=== PATIENT | male | born 1980 | race Caucasian/White ===

== ENCOUNTER 2016-11-28 15:01 | Emergency (ER) | payer BC ==
[~2016-11-28] VITALS: Ht 180.3 cm; Wt 78.9 kg
[2016-11-28 15:06] VITALS: TEMP 36.6; Ht 180.3 cm; Wt 78.9 kg
[2016-11-28] MEDS ORDERED: CLR10 PO (15:25)
[2016-11-28] MEDS ORDERED: MULT-106 PO (15:25)
--- NOTE | 2016-11-28 15:39 | EMERGENCY ROOM VISIT NOTE ---
History First contact with patient: 15:12 Chief Complaint: CARDIAC ASSESSMENT Stated Complaint: NUMBNESS IN HANDS,RAPID HEARTBEAT,CHEST PRESSURE History of Present Illness The patient is a 36 year old male who presents to the Emergency Room with complaints of intermittent chest discomfort over the last several months. He reports that it occurs a few times a week. It is not related to exercise. He denies any shortness of breath. He became concerned last night because he developed the pain and then his hands felt numb. The numbness then spread up his arms into his shoulders and his jaw. This lasted for approximately 1 hour. He took an aspirin last night with no relief of his symptoms. He denies any known history of coronary artery disease. He denies any recent illness like fever, cough, sore throat or headaches. He does admit to occasional heart palpitations. The patient does not know of any insect bites. 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 Review of Systems 10 system review performed and negative unless noted in HPI or below Past Medical/Surgical History Otherwise healthy Family History Mother-stroke in her 50s Social History Smoking Status: Former Smoker Alcohol Use: occasionally Drug Use: none Marital Status: Housing Status: lives with significant other Occupation Status: employed Current/Historical Medications Scheduled Loratadine (Claritin), 10 MG PO DAILY Multiple Vitamins W/ Minerals (One Daily Mens), 1 TAB PO DAILY Allergies Coded Allergies: No Known Allergies (Unverified , 08/29/15) Physical Exam Vital Signs Date Time Temp Pulse Resp B/P (MAP) Pulse Ox O2 Delivery O2 Flow Rate FiO2 11/28/16 18:01 62 18 111/62 96 Room Air 11/28/16 17:00 65 18 132/73 97 Room Air 11/28/16 15:24 87 11/28/16 15:06 36.6 74 18 120/73 98 Room Air Physical Exam VITALS: Vitals are noted on the nurse's note and reviewed by myself. Vital signs stable. GENERAL: 36-year-old male, in no acute distress, nondiaphoretic, well-developed well-nourished. SKIN: The skin was without rashes, erythema, edema, or bruising. HEAD: Normocephalic atraumatic. MOUTH: Mucous membranes fairly moist. NECK: Supple without nuchal rigidity. No lymphadenopathy. Cervical spine is nontender. No JVD. HEART: Regular rate and rhythm without murmurs gallops or rubs. LUNGS: Clear to auscultation bilaterally without wheezes, rales or rhonchi. No accessory muscle use. ABDOMEN: Positive bowel sounds x 4.Soft, nontender, without organomegaly. No guarding or rebound tenderness. MUSCULOSKELETAL: No muscle atrophy, erythema, or edema noted. No tenderness to palpation. Normal gait. Strength 5/5 throughout. NEURO: Patient was alert and oriented to person place and time. Normal sensation to touch. No focal neurological deficits. Medical Decision & Procedures ER Provider Diagnostic Interpretation: Patient: CURTIS KNIGHT Address1: [address] Rec: [id number] Address2: Acct ID: [id number] [facility] Zip: [place] [address] Date: 1980 Sex: M Room/Bed: Ref Phy: Altaf Burnette D.O. SC: BETO Att Phy: Report #: [id number] Lorena Phy: Altaf Burnette D.O. Test: CXR Admit Phy: Twister Hand: JOSE Interpreting Phy: Jemal Garland M.D. Diagnosis: NUMBNESS IN HANDS,RAPID HEARTBEAT,CHEST PRESSURE Ordering Phy: Chayo Webb PA-C Service Date: 11/28/16 Admit Date: 11/28/16 MNE: [id number] CONF: DICTATED BY: Jemal Garland M.D.]] CC: Vasile Calderon D.O. Newhouser, Shane D., D.O. Urban, Angela P., PA-C Endcc: [~ rep ct add3]] CHEST 2 VIEWS ROUTINE CLINICAL HISTORY: chest pain dyspnea COMPARISON STUDY: None FINDINGS: The bones soft tissues and hemidiaphragms are normal. The cardiomediastinal silhouette is normal. The lungs are clear. The pulmonary vasculature is normal. IMPRESSION: Negative chest. The above report was generated using voice recognition software. It may contain grammatical, syntax or spelling errors. Electronically signed by: Jemal Garland M.D. 11/28/2016 5:07 PM Dictated Date/Time: 11/28/2016 5:07 PM The status of this report is Signed. Draft = Not yet reviewed or approved by Radiologist. Signed = Reviewed and approved by Radiologist. Laboratory Results 11/28/16 15:43 Red Blood Count 4.85, Mean Corpuscular Volume 86.4, Mean Corpuscular Hemoglobin 29.5, Mean Corpuscular Hemoglobin Concent 34.1, Mean Platelet Volume 10.3, Neutrophils (%) (Auto) 61.7, Lymphocytes (%) (Auto) 29.3, Monocytes (%) (Auto) 7.9, Eosinophils (%) (Auto) 0.7, Basophils (%) (Auto) 0.3, Neutrophils # (Auto) 4.53, Lymphocytes # (Auto) 2.15, Monocytes # (Auto) 0.58, Eosinophils # (Auto) 0.05, Basophils # (Auto) 0.02 11/28/16 15:43 Test 11/28/16 15:34 11/28/16 15:43 Creatine Kinase MB Ratio (0-3.0) White Blood Count 7.34 K/uL (4.8-10.8) Red Blood Count 4.85 M/uL (4.7-6.1) Hemoglobin 14.3 g/dL (14.0-18.0) Hematocrit 41.9 % (42-52) Mean Corpuscular Volume 86.4 fL (80-100) Mean Corpuscular Hemoglobin 29.5 pg (25-34) Mean Corpuscular Hemoglobin Concent 34.1 g/dl (32-36) Platelet Count 373 K/uL (130-400) Mean Platelet Volume 10.3 fL (7.4-10.4) Neutrophils (%) (Auto) 61.7 % Lymphocytes (%) (Auto) 29.3 % Monocytes (%) (Auto) 7.9 % Eosinophils (%) (Auto) 0.7 % Basophils (%) (Auto) 0.3 % Neutrophils # (Auto) 4.53 K/uL (1.4-6.5) Lymphocytes # (Auto) 2.15 K/uL (1.2-3.4) Monocytes # (Auto) 0.58 K/uL (0.11-0.59) Eosinophils # (Auto) 0.05 K/uL (0-0.5) Basophils # (Auto) 0.02 K/uL (0-0.2) RDW Standard Deviation 42.9 fL (36.4-46.3) RDW Coefficient of Variation 13.5 % (11.5-14.5) Immature Granulocyte % (Auto) 0.1 % Immature Granulocyte # (Auto) 0.01 K/uL (0.00-0.02) Anion Gap 6.0 mmol/L (3-11) Est Creatinine Clear Calc Drug Dose 100.7 ml/min Estimated GFR () 101.0 Estimated GFR (Non- 87.1 BUN/Creatinine Ratio 14.4 (10-20) Calcium Level 9.4 mg/dl (8.5-10.1) Magnesium Level 2.0 mg/dl (1.8-2.4) Total Bilirubin 0.8 mg/dl (0.2-1) Aspartate Amino Transf (AST/SGOT) 26 U/L (15-37) Alanine Aminotransferase (ALT/SGPT) 44 U/L (12-78) Alkaline Phosphatase 68 U/L (45-117) Creatine Kinase MB 1.3 ng/ml (0.5-3.6) Troponin I < 0.015 ng/ml (0-0.045) C-Reactive Protein < 0.29 mg/dl (0-0.29) Total Protein 7.6 gm/dl (6.4-8.2) Albumin 4.0 gm/dl (3.4-5.0) Globulin 3.6 gm/dl (2.5-4.0) Albumin/Globulin Ratio 1.1 (0.9-2) Thyroid Stimulating Hormone (TSH) 1.190 uIu/ml (0.300-4.500) Lyme Disease IgG Antibody NEG (NEG) Lyme Disease IgM Antibody NEG (NEG) Medications Administered Medications (Trade) Dose Ordered Sig/Stephanie Route Start Time Stop Time Status Last Admin Dose Admin Nitroglycerin (Nitroglycerin 2% Oint) 1 inch NOW ONCE EXT 11/28/16 15:45 11/28/16 15:46 DC 11/28/16 16:33 1 INCH Aspirin (Aspirin Chew) 324 mg NOW STAT PO 11/28/16 15:51 11/28/16 15:52 DC 11/28/16 16:33 324 MG ECG Indication: chest pain Rate (beats per minute): 74 Rhythm: normal sinus Comparison ECG Date: no prior available ED Course Patient was seen and examined Vital signs including blood pressure were reviewed medications list was verified with patient Labs were obtained, and a saline lock was established The patient was given aspirin and nitroglycerin paste Imaging was performed and reviewed The patient was reassessed. He did not experience any chest pain during his emergency department stay. EKG was repeated and unchanged The case was discussed with supervising physician, Dr. Calderon I thoroughly reviewed the patient's workup with him and his . All questions were answered. I reviewed discharge instructions the patient. They voiced understanding and had no further questions. Medical Decision Differential diagnosis: Acute myocardial infarction, cardiac arrhythmia, anemia , thyroid abnormality, pneumothorax, pneumonia, bronchitis, pericarditis, electrolyte imbalance , Lyme disease, anxiety, neurologic disorder This patient is a 36-year-old male that presents to the emergency department complaining of a pressure-like intermittent chest pain and numbness and tingling in his arms over several months. His exam was benign. EKG shows no ST changes. Cardiac enzymes are normal. Chest x-ray is normal. Lyme screen is negative. The etiology of his symptoms are unclear, however the patient does appear very anxious. I believe there is likely a role of anxiety. With that said, the patient was advised to follow-up with his primary care physician within the next 3-5 days. I also recommended that the patient undergo a stress test. The patient was advised to come back to the emergency department with any worsening symptoms. Impression Primary Impression: Chest pain Departure Information Dispostion Home / Self-Care Condition GOOD Referrals Altaf Burnette, D.O. (PCP) Patient Instructions ED Chest Pain NonCardiac, My [facility] Additional Instructions You were evaluated in the emergency department today for complaints of chest pain, numbness and tingling. I did not find any abnormalities in blood work or EKG. A chest x-ray was also normal. The etiology of your symptoms is unclear. I do suggest that he follow up with your primary care physician within the next 2-5 days. I also would recommend undergoing a stress test. Return to the emergency department if you have any of the following symptoms: -Fever of 102F or greater -Persistent vomiting - Persistent diarrhea -Lethargy -Returning or worsening Chest pain -Shortness of breath
[2016-11-28] MEDS ORDERED: NITROGLYCERIN OINT 2% 1GM PACKET EXT ONE (15:45)
[2016-11-28] MEDS ORDERED: ASPIRIN 324 MG CHEW PO STA (15:51)
[2016-11-28 15:55] LABS: BASO % 0.3 %; BASO ABS # 0.02 K/uL (0-0.2); COMPLETE YES; EOS % 0.7 %; HEMATOCRIT 41.9 % (42-52); IG% 0.1 %; LYMPH % 29.3 %; LYMPH ABS # 2.15 K/uL (1.2-3.4); MEAN CELL VOLUME 86.4 fL (80-100); MEAN CORPUSCULAR HEMOGLOBIN 29.5 pg (25-34); MEAN CORPUSCULAR HGB CONC 34.1 g/dl (32-36); MEAN PLATELET VOLUME 10.3 fL (7.4-10.4); MONO % 7.9 %; NEUT % 61.7 %; PLATELET COUNT 373 K/uL (130-400); RED BLOOD COUNT 4.85 M/uL (4.7-6.1); WHITE BLOOD COUNT 7.34 K/uL (4.8-10.8)
[2016-11-28 16:12] LABS: ALT/SGPT 44 U/L (12-78); AST/SGOT 26 U/L (15-37); BLOOD UREA NITROGEN 16 mg/dl (7-18); BUN/CREATININE RATIO 14.4 (10-20); CALCIUM 9.4 mg/dl (8.5-10.1); CARBON DIOXIDE 30 mmol/L (21-32); CHLORIDE 106 mmol/L (98-107); GLUCOSE 103 mg/dl (70-99); POTASSIUM 3.4 mmol/L (3.5-5.1); SODIUM 142 mmol/L (136-145)
[2016-11-28 16:23] LABS: ALB/GLOB RATIO 1.1 (0.9-2); ALKALINE PHOSPHATASE 68 U/L (45-117); C-REACTIVE PROTEIN < 0.29 mg/dl (0-0.29)
[2016-11-28 16:48] LABS: LYME DISEASE AB IGG NEG (NEG); LYME DISEASE AB IGM NEG (NEG)
--- NOTE | 2016-11-28 17:09 | DIAGNOSTIC IMAGING REPORT ---
CHEST 2 VIEWS ROUTINE CLINICAL HISTORY: chest pain dyspnea COMPARISON STUDY: None FINDINGS: The bones soft tissues and hemidiaphragms are normal. The cardiomediastinal silhouette is normal. The lungs are clear. The pulmonary vasculature is normal. IMPRESSION: Negative chest. The above report was generated using voice recognition software. It may contain grammatical, syntax or spelling errors. Electronically signed by: Jemal Garland M.D. 11/28/2016 5:07 PM Dictated Date/Time: 11/28/2016 5:07 PM
[2016-11-28 18:01] VITALS: BP 111/62; PULSE 62; O2SAT 96
== END 2016-11-28 18:20 | disposition home or self-care (01) ==
LOC: C.EDB 15:04 → C.EDC 18:20
DX: R07.9 Chest pain, unspecified (principal); Z82.49 Family history of ischemic heart disease and other diseases of the circulatory system; Z87.891 Personal history of nicotine dependence